=== PATIENT | female | born 1955 | race Caucasian/White ===

== ENCOUNTER 2017-01-05 16:36 | Emergency (ER) | payer BC | END 2017-01-05 21:30 | disposition home or self-care (01) | LOC: ER 16:36 | DX: R07.89 Other chest pain (principal); J18.9 Pneumonia, unspecified organism; J45.909 Unspecified asthma, uncomplicated; F32.9 Major depressive disorder, single episode, unspecified; K21.9 Gastro-esophageal reflux disease without esophagitis; Z79.899 Other long term (current) drug therapy | CPT/HCPCS: 36415; 96361; 96374; Q9967 ==